=== PATIENT | female | born 2000 | race African-American/Black ===

== ENCOUNTER 2023-12-25 17:45 | Inpatient (IN) | payer MEDICAID ==
[~2023-12-25] VITALS: Ht 175.3 cm; Wt 59.4 kg
[2023-12-25 18:12] LABS: COVID AG,FIA SOURCE NASAL SWAB
[2023-12-25 18:14] LABS: BASOPHILS % (AUTO) 0.3 % (0.0-2.0); EOSINOPHILS % (AUTO) 0.5 % (1.0-6.0); HEMOGLOBIN 11.5 g/dL (12.0-16.0); LYMPHOCYTES # (AUTO) 1.7 K/uL (1.0-4.8); LYMPHOCYTES % (AUTO) 44.2 % (22.0-44.0); MEAN CORPUSCULAR HEMOGLOBIN 25.7 pg (26.0-34.0); MEAN CORPUSCULAR HGB CONC 32.7 G/dL (31.0-37.0); MEAN CORPUSCULAR VOLUME 78 fL (80-100); MONOCYTES # (AUTO) 0.3 K/uL (0.1-1.0); MONOCYTES % (AUTO) 7.6 % (2.0-9.0); NEUTROPHILS # (AUTO) 1.8 K/uL (1.8-7.7); NEUTROPHILS % (AUTO) 47.4 % (40.0-70.0); PLATELET COUNT (AUTO) 159 K/uL (150-450); RED BLOOD CELL COUNT(AUTO) 4.46 MIL/uL (4.00-5.20); RED CELL DISTRIBUTION WIDTH 17.7 % (11.5-14.5); WHITE BLOOD COUNT (AUTO) 3.8 K/uL (4.5-11.0)
[2023-12-25 18:23] LABS: ANION GAP 11 mmol/L (8-16); CALCIUM, TOTAL 8.2 mg/dL (8.8-10.5); CARBON DIOXIDE 25 mmol/L (22-29); CHLORIDE 103 mmol/L (98-107); CREATININE 0.62 mg/dL (0.60-1.30); GLOMERULAR FILTR. RATE CALC > 60 mL/min (>60); GLUCOSE,RANDOM 93 mg/dL (70-110); POTASSIUM 3.8 mmol/L (3.5-5.1); SODIUM SERUM 139 mmol/L (136-145); UREA NITROGEN, BLOOD 7 mg/dL (7-18)
[2023-12-25 18:24] LABS: ALCOHOL, BLOOD (SERUM) 255 mg/dL (0-10)
[2023-12-25] MEDS: LORazepam 2 MG/ML VIAL IM ONE (18:28)
[2023-12-25] MEDS: HALOPERIDOL LACTATE 5 MG/ML VIAL IM ONE (18:28)
[2023-12-25] MEDS: DiphenhydrAMINE HCL 50 MG/ML VIAL IM ONE (18:28)
[2023-12-25 18:49] LABS: ALCOHOL, URINE DRUG SCREEN POSITIVE (NEGATIVE); AMPHET/METH SCREEN,URINE NEGATIVE (NEGATIVE); BARBITURATE SCREEN, URINE NEGATIVE (NEGATIVE); BENZODIAZEPINES SCREEN,URINE NEGATIVE (NEGATIVE); CANNABINOID SCREEN,URINE NEGATIVE (NEGATIVE); COCAINE SCREEN,URINE NEGATIVE (NEGATIVE); METHADONE SCREEN, URINE NEGATIVE (NEGATIVE); OPIATE SCREEN,URINE NEGATIVE (NEGATIVE); PHENCYCLIDINE SCREEN,URINE NEGATIVE (NEGATIVE)
[2023-12-25 18:51] LABS: SARS-COV2 (COVID) ANTIGEN,FIA Negative (Negative)
[2023-12-25] MEDS ORDERED: LORazepam 2 MG TABLET PO PRN (21:30)
[2023-12-25] MEDS ORDERED: ACETAMINOPHEN 325 MG TABLET PO PRN (21:30)
[2023-12-25] MEDS ORDERED: MAG HYDROX/ALUMINUM HYD/SIMETH ES 30 ML SUSPENSION UDCUP PO PRN (21:30)
[2023-12-25] MEDS ORDERED: MAGNESIUM HYDROXIDE SUSPENSION 30 ML UDCUP PO PRN (21:30)
[2023-12-25] MEDS ORDERED: LOPERAMIDE HCL 2 MG CAPSULE PO PRN (21:30)
[2023-12-25] MEDS ORDERED: HALOPERIDOL 5 MG TABLET PO PRN (21:30)
[2023-12-26 04:38] VITALS: BP 123/73; PULSE 88; RESP 17; TEMP 98.7; O2SAT 99
[2023-12-26 05:36] VITALS: BP 123/73; PULSE 88; RESP 16; TEMP 98.7; O2SAT 99
[2023-12-26 08:18] VITALS: RESP 16
[2023-12-26 08:26] LABS: HEMOGLOBIN A1C 4.6 % (3.8-5.6)
[2023-12-26 08:39] LABS: CHOLESTEROL 184 mg/dL (131-200); FREE T4 (FREE THYROXINE) 0.91 ng/dL (0.76-1.46); HCG,QUANTITATIVE < 1 mIU/mL (0-6); HDL CHOLESTEROL 62 mg/dL (40-60); LDL CHOL (CALC.) 100 mg/dL (0-130); THYROID STIMULATING HORMONE 1.19 uIU/mL (0.36-3.74); TRIGLYCERIDES 109 mg/dL (15-150)
[2023-12-26] MEDS ORDERED: MAGNESIUM HYDROXIDE SUSPENSION 30 ML UDCUP PO PRN (13:45)
[2023-12-26] MEDS ORDERED: DOCUSATE SODIUM 100 MG CAPSULE PO PRN (13:45)
[2023-12-26] MEDS ORDERED: IBUPROFEN 400 MG TABLET PO PRN (13:45)
[2023-12-26] MEDS ORDERED: LOPERAMIDE HCL 2 MG CAPSULE PO PRN (13:45)
[2023-12-26] MEDS ORDERED: ONDANSETRON 4 MG TABLET PO PRN (13:45)
[2023-12-26] MEDS ORDERED: PETROLATUM,WHITE 28 GM JELLY TP PRN (13:45)
[2023-12-26] MEDS ORDERED: GuaiFENesin/D-METHORPHAN [SUGAR-FREE] 200-20MG/10 ML SYRUP UDCUP PO PRN (13:45)
[2023-12-26] MEDS ORDERED: ALBUTEROL SULFATE HFA 90 MCG/PUFF 8 GM INHALER IH PRN (13:45)
[2023-12-26] MEDS ORDERED: ACETAMINOPHEN 325 MG TABLET PO PRN (13:45)
[2023-12-26] MEDS ORDERED: CloNIDine HCL 0.1 MG TABLET PO PRN (13:45)
[2023-12-26] MEDS ORDERED: NICOTINE 14 MG/24 HOUR PATCH TD PRN (13:45)
[2023-12-26] MEDS ORDERED: MAG HYDROX/ALUMINUM HYD/SIMETH ES 30 ML SUSPENSION UDCUP PO PRN (13:45)
[2023-12-26] MEDS: INFLUENZA VIRUS VACCINE TVS (6MO+) 2024-25/PF 45 MCG/0.5 ML SYRINGE IM. ONE (14:42)
[2023-12-26 20:34] VITALS: BP 120/70; PULSE 89; RESP 17; TEMP 98.2; O2SAT 98
[2023-12-26] MEDS: ZOLPIDEM TARTRATE 10 MG TABLET PO PRN (20:39)
[2023-12-27 08:09] VITALS: BP 106/63; PULSE 82; RESP 18; TEMP 97.8; O2SAT 98
[2023-12-27] MEDS: BACITRACIN 28 GM OINTMENT TP SCH (08:40)
[2023-12-27 09:27] LABS: HEMOGLOBIN A1C 5.1 % (3.8-5.6)
[2023-12-27 09:39] LABS: THYROID STIMULATING HORMONE 0.97 uIU/mL (0.36-3.74)
[2023-12-27 09:59] LABS: CHOL/HDL RATIO 2.9 (3.9-5.7)
== END 2023-12-27 13:40 | disposition home or self-care (01) | DRG 751 ==
LOC: EMS 18:01 → B3A 12-26 01:50 → B2S 12-26 15:57
PROVIDERS: ADMIT Psychiatry & Neurology Psychiatry; ATTEND Psychiatry & Neurology Psychiatry
PROC: GZHZZZZ Group Psychotherapy (ICD-10-PCS; principal; 2023-12-26)
PROC: GZ51ZZZ Individual Psychotherapy, Behavioral (ICD-10-PCS; 2023-12-26)
DX: F33.2 Major depressive disorder, recurrent severe without psychotic features (principal); R45.851 Suicidal ideations; D64.9 Anemia, unspecified; D72.819 Decreased white blood cell count, unspecified; S61.512A Laceration without foreign body of left wrist, initial encounter; Z20.822 Contact with and (suspected) exposure to COVID-19; F10.129 Alcohol abuse with intoxication, unspecified; F19.10 Other psychoactive substance abuse, uncomplicated; X78.1XXA Intentional self-harm by knife, initial encounter; Y93.89 Activity, other specified; Y92.89 Other specified places as the place of occurrence of the external cause; Y99.8 Other external cause status
CPT/HCPCS: 80048; 80061; 80307; 83036; 84439; 84443; 84702; 85025; 86592; G0480